=== PATIENT | female | born 1960 | race Caucasian/White ===

== ENCOUNTER → 2016-06-15 | Day surgery (SDC) | payer BC ==
[~2016-06-15] MED LIST: BUPIVACAINE/EPINEPHRINE 0.25% PF 30 ML VIAL ONE; KETOROLAC TROMETHAMINE 30 MG/ML (IVP) VIAL IV PUSH ONE; LACTATED RINGER'S 1000 ML INJ 1,000 ML ONE; MIDAZOLAM HCL 2 MG/2 ML VIAL ONE; NEOMYCIN/POLYMYXIN/BACITRACIN OINT 15 GM TUBE ONE; ONDANSETRON HCL 4 MG/2 ML VIAL IV PUSH ONE; PROPOFOL 200 MG/20 ML AMP IV ONE; ceFAZolin 2 GM PREMIX 50 ML ONE
--- NOTE | 2016-06-15 21:20 | TN ---
cc: CALLY MEEK DATE OF SURGERY 06/15/16 PREOPERATIVE DIAGNOSIS Symptomatic enlarging supraumbilical hernia. POSTOPERATIVE DIAGNOSIS Symptomatic enlarging supraumbilical hernia. PROCEDURE PERFORMED Primary repair of supraumbilical hernia. SURGEON Leatha Meek MD JOGGER OPERATOR Hector Villanueva, MS III ANESTHESIA General LMA COMPLICATIONS Non INDICATIONS FOR PROCEDURE Ms. Villanueva is a very pleasant 55-year-old female who reported a symptomatic enlarging bulge in her supraumbilical region. The patient was seen and evaluated in the office yesterday and offered elective repair. Risks and benefits of repair were discussed with her and she was agreeable. PROCEDURE IN DETAIL The patient was identified, brought to the operating room, placed supine on the operating table. After adequate general anesthesia was achieved via LMA, the anterior abdomen was prepped and draped in standard surgical fashion. Hernia had been marked in the preoperative holding area. The patient had a natural skin line midway between the umbilicus and the hernia. 0.25% Marcaine was injected and a transverse incision was made in the patient's natural skin line. Subcutaneous skin flap was then raised cephalad up to the hernia. Hernia defect was identified. The fascia was cleaned off circumferentially. Hernia neck was quite small and the hernia sac contained chronically incarcerated preperitoneal fat. The hernia sac and the fat was excised. This would not fit back through the defect. It was discarded. Once we did this, the defect was quite small. It was less than a finger breadth fascial defect. We therefore elected to close it primarily. Fascial defect was closed with 0 Prolene interrupted x2. This defect was completely closed. We did place an additional 2-0 Vicryl suture midway between the other two sutures as there was a small gap between them, but overall not big enough to admit a finger. 0.25% Marcaine was injected into the skin and subcutaneous tissue around the repair. The wound was irrigated with normal saline solution. Wound was then closed in two layers using 3-0 Vicryl for the subcutaneous layer and 4-0 Vicryl for the skin. Sterile dressings were applied. The patient was awakened, brought to recovery in stable condition. Cally Meek MD [place] /8:48 PM /9:12 PM
== END | disposition home or self-care (01) ==
LOC: ESDC 11:41
PROVIDERS: ATTEND Surgery Trauma Surgery
DX: K42.9 Umbilical hernia without obstruction or gangrene (principal)
CPT/HCPCS: 00750; 49585; J0690; J1885; J2250; J2405; J3010; J7120